=== PATIENT | female | born 1955 | race Hispanic/Latino ===

== ENCOUNTER 2018-04-25 11:47 | Emergency (ER) | payer OTHER ==
[2018-04-25 11:47] VITALS: BMI 34.9
[2018-04-25 12:16] VITALS: RESP 18; TEMP 98.8
--- NOTE | 2018-04-25 12:34 | ED PDOC ---
Arrival/HPI - General Chief Complaint: Lower Extremity Problem/Injury Time Seen by Provider: 04/25/18 11:58 Historian: Patient, Spouse - History of Present Illness Narrative History of Present Illness (Text): 04/25/18 12:34 A 62 year old male, whose past medical history includes hypertension and brain surgery of the meningioma, presents to the emergency department complaining of left leg pain since earlier today. Patient reports she was taking her dog outside and hit the staircase with her left leg limiting her movement to limping with a cane due to pain. Patient notes she took pain medication, Advil around 1 hour ago to no relief. Patient denies any fever, chills, shortness of breath, chest pain, diarrhea, nausea, vomiting, urinary symptoms, back pain , neck pain, headache, dizziness, or any other complaints. PMD: Dr. Bahman Bazzi Time/Duration: Other (earlier today) Symptom Onset: Sudden Symptom Course: Unchanged Quality: Stabbing Activities at Onset: Light Context: Home Past Medical History - Provider Review Nursing Documentation Reviewed: Yes - Infectious Disease Hx of Infectious Diseases: None - Tetanus Immunization Tetanus Immunization: Up to Date - Reproductive Menopause: Yes - Cardiac Hx Cardiac Disorders: Yes - Neurological Hx Seizures: Yes - Psychiatric Hx Depression: Yes Hx Emotional Abuse: No Hx Physical Abuse: No Hx Substance Use: No - Anesthesia Hx Anesthesia: No - Suicidal Assessment Feels Threatened In Home Enviroment: No Family/Social History - Physician Review Nursing Documentation Reviewed: Yes Family/Social History: Unknown Family HX Smoking Status: Unknown If Ever Smoked Hx Alcohol Use: No Hx Substance Use: No Hx Substance Use Treatment: No Allergies/Home Meds Allergies/Adverse Reactions: Allergies cephalexin [From Keflex] Allergy (Verified 04/25/18 12:15) ANAPHYLAXIS Home Medications: Home Meds Medication Instructions Recorded Confirmed Aspirin [Aspir 81] 81 mg PO DAILY 12/11/12 12/11/12 Phenytoin Sodium, Extended 200 mg PO BID 12/11/12 12/11/12 [Dilantin] Sertraline [Zoloft] 25 mg PO DAILY 12/11/12 12/11/12 Simvastatin [Zocor] 5 mg PO DAILY 12/11/12 12/11/12 Review of Systems - Physician Review All systems were reviewed & negative as marked: Yes - Review of Systems Constitutional: absent: Fevers, Night Sweats Respiratory: absent: SOB Cardiovascular: absent: Chest Pain Gastrointestinal: absent: Diarrhea, Nausea, Vomiting Genitourinary Female: absent: Urine Output Changes Musculoskeletal: Other (+left leg pain). absent: Back Pain, Neck Pain Neurological: absent: Headache, Dizziness Physical Exam Vital Signs Reviewed: Yes Vital Signs Temp Pulse Resp BP Pulse Ox 04/25/18 14:20 70 18 156/75 H 98 04/25/18 12:10 98.8 F 68 18 163/82 H 97 Temperature: Afebrile Blood Pressure: Hypertensive Pulse: Regular Respiratory Rate: Normal Appearance: Positive for: Well-Appearing, Non-Toxic, Comfortable Pain Distress: None Mental Status: Positive for: Alert and Oriented X 3 - Systems Exam Head: Present: Atraumatic, Normocephalic Pupils: Present: PERRL Extroacular Muscles: Present: EOMI Conjunctiva: Present: Normal Mouth: Present: Moist Mucous Membranes Neck: Present: Normal Range of Motion Respiratory/Chest: Present: Clear to Auscultation, Good Air Exchange. No: Respiratory Distress, Accessory Muscle Use Cardiovascular: Present: Regular Rate and Rhythm, Normal S1, S2. No: Murmurs Abdomen: No: Tenderness, Distention, Peritoneal Signs Back: Present: Normal Inspection Upper Extremity: Present: Normal Inspection. No: Cyanosis, Edema Lower Extremity: Present: Normal Inspection, NORMAL PULSES (+good distal pulses) , Normal ROM, Tenderness (+lower left leg is tender to palpation), Swelling (+ mild swelling on left leg), Neurovascularly Intact. No: Edema, CALF TENDERNESS , Cyanosis, Gerber's Sign, Erythema (left is now erythemous or red), Deformity, Capillary Refill < 2 s Neurological: Present: GCS=15, CN II-XII Intact, Speech Normal Skin: Present: Warm, Dry, Normal Color. No: Rashes Psychiatric: Present: Alert, Oriented x 3, Normal Insight, Normal Concentration Medical Decision Making ED Course and Treatment: 04/25/18 12:39 Impression: 62 year old male presenting to the Emergency department complaining of left leg pain. No cellulitis or overlying erythema over joints. No pitting edema. U/L DVT given hx of recent trauma. Given good N/V status and time delay u /l arterial extremity injury. Plan: -- Xray of Left ankle 3 views -- Xray left knee 2 views -- Reassess and disposition Prior Visits: Notes and results from previous visits were reviewed. Progress Notes: 04/25/18 13:35 Dictator: Deep Alonso MD Procedure: Left ankle radiographs Impression: Normal left ankle radiographs Dictator: Deep Alonso MD Procedure: Left knee radiographs Impression: Normal radiographs of left knee. 04/25/18 13:59 Upon reassessment, good N/V status and patient reports pain has improved and refuses an ashu wrap or brace. Patient will follow up with PMD. 04/25/18 19:25 - RAD Interpretation Radiology Orders: 04/25/18 12:34 ANKLE LEFT 3 VIEWS ROUTINE [RAD] Stat KNEE LEFT 2 VIEWS (AP & LAT) [RAD] Stat - Scribe Statement The provider has reviewed the documentation as recorded by the Scribmary Hernandez All medical record entries made by the Scribe were at my direction and personally dictated by me. I have reviewed the chart and agree that the record accurately reflects my personal performance of the history, physical exam, medical decision making, and the department course for this patient. I have also personally directed, reviewed, and agree with the discharge instructions and disposition. Disposition/Present on Arrival - Present on Arrival Any Indicators Present on Arrival: No History of DVT/PE: No History of Uncontrolled Diabetes: No Urinary Catheter: No History of Decub. Ulcer: No History Surgical Site Infection Following: None - Disposition Have Diagnosis and Disposition been Completed?: Yes Diagnosis: Contusion, knee and lower leg, Knee sprain, Ankle sprain Disposition: HOME/ ROUTINE Disposition Time: 13:59 Condition: GOOD Discharge Instructions (ExitCare): Ankle Sprain, Knee Sprain (DC) Additional Instructions: BELEN GARCIA, thank you for letting us take care of you today. Your provider was Apollo Carlson and you were treated for LEFT LEG PAIN. The emergency medical care you received today was directed at your acute symptoms. If you were prescribed any medication, please fill it and take as directed. It may take several days for your symptoms to resolve. Return to the Emergency Department if your symptoms worsen, do not improve, or if you have any other problems. Please contact your doctor or call one of the physicians/clinics you have been referred to that are listed on the Patient Visit Information form that is included in your discharge packet. Bring any paperwork you were given at discharge with you along with any medications you are taking to your follow up visit. Our treatment cannot replace ongoing medical care by a primary care provider outside of the emergency department. Thank you for allowing the [facility] team to be part of your care today. If you had an X-Ray or CT scan: A Radiologist will review the ED reading if any change in treatment is needed we will contact you. If you had a blood, urine, or wound culture: It will take several days for the results, if any change in treatment is needed we will contact you. If you had an STI test: It will take 48 hours for the results. Please call after 1 week if you have not heard back. Referrals: Bahman Bazzi JD, MD [Primary Care Provider] - Follow up with primary Paz Thorpe MD [Staff Provider] - Follow up with primary Forms: [employer] (Salvadorean)
--- NOTE | 2018-04-25 13:19 | RAD ---
Date of service: 04/25/2018 PROCEDURE: Left Ankle Radiographs. HISTORY: fall COMPARISON: None FINDINGS: BONES: Normal. No fracture. JOINTS: Normal. No osteoarthritis. Ankle mortise maintained. Talar dome intact SOFT TISSUES: Normal. OTHER FINDINGS: None. IMPRESSION: Normal left ankle radiographs.
--- NOTE | 2018-04-25 13:21 | RAD ---
Date of service: 04/25/2018 PROCEDURE: Left Knee Radiographs. HISTORY: Pain. COMPARISON: None. FINDINGS: BONES: Normal. No fracture. JOINTS: Normal. No osteoarthritis. JOINT EFFUSION: None. OTHER FINDINGS: None. IMPRESSION: Normal radiographs of the left knee.
[2018-04-25 14:21] VITALS: BP 156/75; PULSE 70; O2SAT 98
== END 2018-04-25 14:24 | disposition home or self-care (01) ==
LOC: ED 11:47
DX: S93.402A Sprain of unspecified ligament of left ankle, initial encounter (principal); S83.92XA Sprain of unspecified site of left knee, initial encounter; S80.02XA Contusion of left knee, initial encounter; W22.8XXA Striking against or struck by other objects, initial encounter; I10 Essential (primary) hypertension

== ENCOUNTER 2018-06-01 12:19 | Emergency (ER) | payer OTHER ==
[2018-06-01 12:20] VITALS: BMI 34.9
[2018-06-01 13:03] VITALS: TEMP 97.8
--- NOTE | 2018-06-01 13:28 | ED PDOC ---
Arrival/HPI - General Historian: Patient - History of Present Illness Narrative History of Present Illness (Text): 06/01/18 13:18 63-year-old female presents today with left knee pain since April 25. Patient states she had twisted her knee about 6 weeks ago and was seen in the emergency room and had x-rays and was told she had a sprained knee. Patient states for the past 6 weeks she has been taking Motrin for pain. Patient states the pain is worsening and states that she's noticed increased swelling in the knee. Patient is complaining of limited range of motion of the knee due to severe pain. Patient states the pain is along the anterior medial and posterior aspects of t he knee. She denies numbness weakness or tingling in the extremity. Patient states she has been ambulating with a cane. Patient states she followed with her primary care physician after the initial injury but has not followed up with an orthopedist. Time/Duration: > month Symptom Onset: Gradual Symptom Course: Worsening Quality: Aching, Stabbing Severity Level: 10 <Chacha Pacheco - Last Filed: 06/01/18 23:15> <Ricci Jones - Last Filed: 06/03/18 11:33> - General Chief Complaint: Lower Extremity Problem/Injury Time Seen by Provider: 06/01/18 13:05 Past Medical History - Provider Review Nursing Documentation Reviewed: Yes - Travel History Have you recently traveled outside [place] w/in the past 3 mons?: No - Infectious Disease Hx of Infectious Diseases: None - Tetanus Immunization Tetanus Immunization: Up to Date - Cardiac Hx Cardiac Disorders: Yes Hx Hypertension: Yes - Pulmonary Hx Respiratory Disorders: No - Neurological Hx Neurological Disorder: Yes Hx Seizures: Yes - HEENT Hx HEENT Disorder: No - Renal Hx Renal Disorder: No - Endocrine/Metabolic Hx Endocrine Disorders: No - Hematological/Oncological Hx Blood Disorders: No - Integumentary Hx Dermatological Disorder: No - Musculoskeletal/Rheumatological Hx Musculoskeletal Disorders: Yes Other/Comment: KNEE PAIN - Gastrointestinal Hx Gastrointestinal Disorders: No - Genitourinary/Gynecological Hx Genitourinary Disorders: No - Psychiatric Hx Psychophysiologic Disorder: Yes Hx Anxiety: Yes Hx Depression: Yes Hx Substance Use: No - Surgical History Other/Comment: R/T MENINGIOMA - Anesthesia Hx Anesthesia: No - Suicidal Assessment Feels Threatened In Home Enviroment: No <Chacha Pacheco - Last Filed: 06/01/18 23:15> Family/Social History - Physician Review Nursing Documentation Reviewed: Yes Family/Social History: Unknown Family HX Smoking Status: Former Smoker Hx Alcohol Use: Yes Frequency of alcohol use: Socially Hx Substance Use: No Hx Substance Use Treatment: No <Chacha Pacheco - Last Filed: 06/01/18 23:15> Allergies/Home Meds <Chacha Pacheco Eliseo - Last Filed: 06/01/18 23:15> <Ricci Jones - Last Filed: 06/03/18 11:33> Allergies/Adverse Reactions: Allergies cephalexin [From Keflex] Allergy (Verified 06/01/18 12:47) ANAPHYLAXIS Home Medications: Home Meds Medication Instructions Recorded Confirmed Aspirin [Aspir 81] 81 mg PO DAILY 12/11/12 06/01/18 Phenytoin Sodium, Extended 100 mg PO TID 12/11/12 06/01/18 [Dilantin] Sertraline [Zoloft] 25 mg PO DAILY 12/11/12 06/01/18 Review of Systems - Review of Systems Constitutional: absent: Fatigue, Fevers Respiratory: absent: SOB, Cough Cardiovascular: absent: Chest Pain, Palpitations Gastrointestinal: absent: Abdominal Pain, Nausea, Vomiting Musculoskeletal: Arthralgias (left knee pain). absent: Back Pain, Neck Pain Skin: absent: Rash, Pruritis Neurological: absent: Headache, Dizziness Psychiatric: absent: Anxiety, Depression <Chacha Pacheco - Last Filed: 06/01/18 23:15> Physical Exam Vital Signs Reviewed: Yes Vital Signs Temp Pulse Resp BP Pulse Ox 06/01/18 12:48 97.8 F 75 17 119/65 96 Temperature: Afebrile Blood Pressure: Normal Pulse: Regular Respiratory Rate: Normal Appearance: Positive for: Well-Appearing, Non-Toxic, Comfortable Pain Distress: None Mental Status: Positive for: Alert and Oriented X 3 - Systems Exam Head: Present: Atraumatic Mouth: Present: Moist Mucous Membranes Neck: Present: Normal Range of Motion Respiratory/Chest: Present: Clear to Auscultation, Good Air Exchange. No: Respiratory Distress, Accessory Muscle Use Cardiovascular: Present: Regular Rate and Rhythm, Normal S1, S2. No: Murmurs Upper Extremity: Present: Normal ROM Lower Extremity: Present: NORMAL PULSES, Tenderness (left knee: + edema over medial aspect of knee. + tenderness over anterior, medial and posterior aspect of knee. limited flexion and extension. no calf tenderness. sensation and distal pulses intact. no thigh tenderness. ), Swelling, Neurovascularly Intact, Capillary Refill < 2 s. No: CALF TENDERNESS, Normal ROM, Erythema, Temperature Abnormalties Neurological: Present: GCS=15, Speech Normal, Normal Sensory Function Skin: Present: Warm, Dry, Normal Color Psychiatric: Present: Alert, Oriented x 3 <Chacha Pacheco - Last Filed: 06/01/18 23:15> Vital Signs Temp Pulse Resp BP Pulse Ox 06/01/18 15:51 65 18 122/58 L 98 06/01/18 12:48 97.8 F 75 17 119/65 96 <Ricci Jones - Last Filed: 06/03/18 11:33> Medical Decision Making ED Course and Treatment: 06/01/18 13:31 Patient nontoxic well-appearing in no distress with stable vital signs pt had xray of left knee on 04/25 which showed no fracture. toradol given for pain. ct of left knee: FINDINGS: Small to moderate joint effusion. No evidence of fracture. No significant degenerative changes. IMPRESSION: Small to moderate joint effusion venous duplex left leg; no dvt Patient placed in knee immobilizer. pt has cane at home for ambulation. Patient reassessment: Patient feeling better after medications. I discussed all results with patient advised to followup with the orthopedist for the next 2 days. Return if symptoms worsen persist or new symptoms develop Patient verbalizes understanding of discharge instructions and need for immediate followup. all aspects of this case were discussed the attending of record. Impression: knee pain Motrin every 6 hours as needed for pain percocet; one tablet every 6 hours as needed for moderate to severe pain: May cause drowsiness Use cane and knee immobilizer for ambulation Rest, ice, compression, elevation Follow-up with the orthopedist within the next 2 days Return immediately if symptoms worsen persist or if new concerning symptoms develop - RAD Interpretation Radiology Orders: 06/01/18 13:16 EXT LOWER W/O CONTRAST LEFT [CT] Stat DUPLEX LOWER EXTRM VEIN LEFT [US] Stat <Chacha Pacheco - Last Filed: 06/01/18 23:15> - RAD Interpretation Radiology Orders: 06/01/18 13:16 EXT LOWER W/O CONTRAST LEFT [CT] Stat DUPLEX LOWER EXTRM VEIN LEFT [US] Stat - Medication Orders Current Medication Orders: Discontinued Medications Ketorolac Tromethamine (Toradol) 60 mg IM STAT STA Stop: 06/01/18 13:18 Last Admin: 06/01/18 14:46 Dose: 60 mg MAR Pain Assessment Document 06/01/18 14:46 GMD (Rec: 06/01/18 14:46 GMD [id number]) Pain Reassessment Is this a pain reassessment? No IM Administration Charges Document 06/01/18 14:46 GMD (Rec: 06/01/18 14:46 GMD [id number]) Injection Site MAR Injection Site Right Gluteus He Charges for Administration # of IM Administrations 1 <Ricci Jones - Last Filed: 06/03/18 11:33> - PA / MATERIALS MANAGER / Resident Statement / has reviewed & agrees with the documentation as recorded. / has examined the patient and agrees with the treatment plan. <Ricci Jones - Last Filed: 06/03/18 11:33> Disposition/Present on Arrival - Present on Arrival Any Indicators Present on Arrival: No History of DVT/PE: No History of Uncontrolled Diabetes: No Urinary Catheter: No History of Decub. Ulcer: No History Surgical Site Infection Following: None - Disposition Have Diagnosis and Disposition been Completed?: Yes Disposition Time: 13:32 Patient Plan: Discharge <Chacha Pacheco - Last Filed: 06/01/18 23:15> <Ricci Jones - Last Filed: 06/03/18 11:33> - Disposition Diagnosis: Knee pain, Knee effusion, left Disposition: HOME/ ROUTINE Condition: GOOD Discharge Instructions (ExitCare): Knee Pain (DC) Additional Instructions: Motrin every 6 hours as needed for pain percocet; one tablet every 6 hours as needed for moderate to severe pain: May cause drowsiness Use cane and knee immobilizer for ambulation Rest, ice, compression, elevation Follow-up with the orthopedist within the next 2 days Return immediately if symptoms worsen persist or if new concerning symptoms develop Prescriptions: Ibuprofen [Motrin] 600 mg PO Q6H PRN #20 tab PRN Reason: pain/fever reduction oxyCODONE/Acetaminophen [Percocet 5/325 mg Tab] 1 tab PO Q6H PRN #6 tab PRN Reason: moderate to severe pain Referrals: Bahman Bazzi JD, MD [Primary Care Provider] - Follow up with primary Addie Israel MD [Staff Provider] - Follow up with primary [facility] [Outside] - Follow up with primary [facility] [Outside] - Follow up with primary Forms: [employer] (Vietnamese), WORK NOTE
--- NOTE | 2018-06-01 14:37 | CT ---
Date of service: 06/01/2018 PROCEDURE: CT of the left knee HISTORY: left knee pain/swelling/injury 6 weeks ago COMPARISON: TECHNIQUE: Radiation dose: Total exam DLP = 295 mGy-cm. This CT exam was performed using one or more of the following dose reduction techniques: Automated exposure control, adjustment of the mA and/or kV according to patient size, and/or use of iterative reconstruction technique. FINDINGS: Small to moderate joint effusion. No evidence of fracture. No significant degenerative changes. IMPRESSION: Small to moderate joint effusion
[2018-06-01 15:52] VITALS: BP 122/58; PULSE 65; RESP 18; O2SAT 98
--- NOTE | 2018-06-01 17:48 | US ---
PROCEDURE: Left lower extremity venous US HISTORY: Leg pain and swelling. Evaluate for DVT. PHYSICIAN(S): Gabriel Maria MD. TECHNIQUE: Duplex sonography and color-flow Doppler with graded compression were used to evaluate the deep venous system of the left lower extremity. The exam is limited by body habitus and edema FINDINGS: The visualized deep venous system of the left lower extremity is sonographically normal and compressible. Normal wave forms and augmentation are seen. There is no sonographic evidence for deep venous thrombosis in the visualized segments of the left lower extremity. IMPRESSION: 1. No sonographic evidence for deep venous thrombosis in the visualized segments of the left lower extremity.
== END 2018-06-01 16:14 | disposition home or self-care (01) ==
LOC: ED 12:19
DX: M25.462 Effusion, left knee (principal); M25.562 Pain in left knee
CPT/HCPCS: 73700; 93971; 96372; 99284; J1885